=== PATIENT | female | born 1975 | race Two or more races ===

== ENCOUNTER 2023-04-05 02:46 | Emergency (ER) | payer OTHER ==
[~2023-04-05] VITALS: Ht 154.9 cm; Wt 50.8 kg
[2023-04-05 03:16] VITALS: BP 94/49; PULSE 85; RESP 20; TEMP 98.4; O2SAT 99
[2023-04-05] MEDS ORDERED: ACETYLCYSTEINE 10 %(100MG/ML) SOL 4ML NEB ONE (03:45)
[2023-04-05] MEDS ORDERED: ALBUTEROL SULF 2.5 MG/0.5ML(0.5%) NEB SOLN NEB ONE (03:45)
[2023-04-05 04:01] VITALS: RESP 20; O2SAT 100
== END 2023-04-05 06:08 | disposition left against medical advice (07) ==
LOC: ER 02:48
DX: T17.890A Other foreign object in other parts of respiratory tract causing asphyxiation, initial encounter (principal); D00.00 Carcinoma in situ of oral cavity, unspecified site; Z98.890 Other specified postprocedural states
CPT/HCPCS: 94640